=== PATIENT | male | born 1945 | race Caucasian/White ===

== ENCOUNTER 2020-08-30 04:10 | Emergency (ER) | payer MEDICARE, BC ==
[2020-08-30] MEDS ORDERED: Aspirin 81 MG Tab.Chew PO ONE (04:26)
[2020-08-30] MEDS ORDERED: Morphine 2 MG/ML SYRINGE IVPUSH PRN (04:26)
[2020-08-30] MEDS ORDERED: Heparin Sodium 5,000 Units/ML Vial IVPUSH ONE (04:26)
[2020-08-30] MEDS ORDERED: Nitroglycerin 0.4 MG Tab.SL SL PRN (04:26)
[2020-08-30] MEDS ORDERED: Ticagrelor 90 MG Tab PO ONE (04:26)
[2020-08-30] MEDS ORDERED: Ondansetron 4 MG/2 ML SDV IVPUSH ONE (04:26)
[2020-08-30] MEDS ORDERED: Heparin Sodium/D5W 25,000 UNITS/500 ML BAG IV SCH (04:30)
--- NOTE | 2020-08-30 04:37 | EDM.PDOC ---
ED HPI GENERAL MEDICAL PROBLEM - General Chief Complaint: Chest Pain Stated Complaint: CHEST PAINS Time Seen by Provider: 08/30/20 04:26 Source of Information: Reports: Patient, Family, RN Notes Reviewed History Limitations: Reports: No Limitations - History of Present Illness INITIAL COMMENTS - FREE TEXT/NARRATIVE: 75-year-old gentleman presents emergency department day complaint of chest pain, he states the chest pain started earlier this afternoon and has continued. He states he gets very short of breath when he exerts himself has had some diaphoresis no nausea. No history of heart disease he does have a past medical history of hypertension Middle Chest Pain Score (Numeric/FACES): 3 - Related Data Allergies Allergy/AdvReac Type Severity Reaction Status Date / Time lisinopril Allergy Cough Verified 08/30/20 04:23 Home Meds: Home Meds Ascorbic Acid 1,000 mg PO DAILY 08/30/20 [History] Aspirin [Halfprin] 81 mg PO DAILY 08/30/20 [History] Losartan [Cozaar] 100 mg PO DAILY 08/30/20 [History] Metoprolol Succinate 50 mg PO DAILY 08/30/20 [History] Omeprazole Magnesium [Prilosec Otc] 20 mg PO DAILY 08/30/20 [History] Simvastatin [Zocor] 40 mg PO DAILY 08/30/20 [History] Past Medical History Cardiovascular History: Reports: High Cholesterol, Hypertension Gastrointestinal History: Reports: GERD Social & Family History - Tobacco Use Tobacco Use Status *Q: Former Tobacco User Used Tobacco, but Quit: Yes Month/Year Tobacco Last Used: 06/2002 - Caffeine Use Caffeine Use: Reports: Coffee - Alcohol Use Days Per Week of Alcohol Use: 4 Number of Drinks Per Day: 2 Total Drinks Per Week: 8 - Recreational Drug Use Recreational Drug Use: No ED ROS GENERAL - Review of Systems Review Of Systems: See Below Constitutional: Reports: Diaphoresis HEENT: Reports: No Symptoms Respiratory: Reports: Shortness of Breath Cardiovascular: Reports: Chest Pain, Dyspnea on Exertion GI/Abdominal: Reports: No Symptoms : Reports: No Symptoms ED EXAM, GENERAL - Physical Exam Exam: See Below Exam Limited By: No Limitations General Appearance: Alert, WD/WN, No Apparent Distress Respiratory/Chest: No Respiratory Distress, Lungs Clear, Normal Breath Sounds, No Accessory Muscle Use, Chest Non-Tender Cardiovascular: Regular Rate, Rhythm, No Murmur GI/Abdominal: Soft, Non-Tender #1 Interpretation EKG Date: 08/30/20 Rhythm: NSR Banner: Normal P-Wave: Present QRS: Normal ST-T: Elevated QT: Prolonged Comparison: NA - No Prior EKG #2 Interpretation EKG Date: 08/30/20 Rhythm: NSR Banner: Normal P-Wave: Present QRS: Normal ST-T: Normal QT: Prolonged Comparison: Change From Previous EKG Course - Vital Signs Last Recorded V/S: Last Vital Signs Temp 97.9 F 08/30/20 04:26 Pulse 102 H 08/30/20 05:07 Resp 16 08/30/20 05:07 BP 106/59 L 08/30/20 05:07 Pulse Ox 96 08/30/20 05:07 - Orders/Labs/Meds Orders: Active Orders 24 hr Category Date Time Status Cardiac Monitoring [RC] STAT Care 08/30/20 04:26 Active Communication Order [RC] Per Unit Routine Care 08/30/20 04:26 Active Communication Order [RC] Per Unit Routine Care 08/30/20 04:26 Active EKG Documentation Completion [RC] ASDIRECTED Care 08/30/20 04:28 Active Heparin Sodium/D5W [Heparin 25,000 Units in D5W 500 ML] Med 08/30/20 04:30 Active 25,000 units in 500 ml IV TITRATE Morphine Med 08/30/20 04:26 Active 2 mg IVPUSH Q10M PRN Nitroglycerin [Nitrostat] Med 08/30/20 04:26 Active 0.4 mg SL Q5M PRN EKG 12 Lead [EK] Stat Ther 08/30/20 04:26 Ordered Medication Orders Heparin Sodium/Dextrose (Heparin 25,000 Units In D5w 500 Ml) 25,000 units in 500 mls @ 19.051 mls/hr IV TITRATE MELLISA; Protocol Morphine Sulfate (Morphine 2 Mg/Ml Syringe) 2 mg IVPUSH Q10M PRN PRN Reason: Chest Pain Stop: 08/31/20 04:27 Nitroglycerin (Nitroglycerin 0.4 Mg Tab.Sl) 0.4 mg SL Q5M PRN PRN Reason: Chest Pain Stop: 08/31/20 04:27 Last Admin: 08/30/20 04:43 Dose: 0.4 mg Documented by: [email or web address] Labs: Laboratory Tests 08/30/20 08/30/20 Range/Units 04:25 04:25 WBC 10.5 (4.5-11.0) K/uL RBC 3.68 L (4.30-5.90) M/uL Hgb 11.5 L (12.0-15.0) g/dL Hct 35.3 L (40.0-54.0) % MCV 96 (80-98) fL MCH 31 (27-31) pg MCHC 33 (32-36) % Plt Count 204 (150-400) K/uL Neut % (Auto) 77 H (36-66) % Lymph % (Auto) 9 L (24-44) % [place] % (Auto) 9 H (2-6) % Eos % (Auto) 5 H (2-4) % Baso % (Auto) 0 (0-1) % Sodium 144 (140-148) mmol/L Potassium 4.6 (3.6-5.2) mmol/L Chloride 107 (100-108) mmol/L Carbon Dioxide 25 (21-32) mmol/L Anion Gap 12.5 (5.0-14.0) mmol/L BUN 19 H (7-18) mg/dL Creatinine 1.1 (0.8-1.3) mg/dL Est Cr Clr Drug Dosing 56.24 mL/min Estimated GFR (MDRD) > 60 (>60) Glucose 149 H (74-106) mg/dL Calcium 9.0 (8.5-10.1) mg/dL Troponin I 3.031 H* (0.000-0.056) ng/mL Meds: Medications Generic Name Dose Route Start Last Admin Trade Name Freq PRN Reason Stop Dose Admin Heparin Sodium/Dextrose 25,000 units in 500 mls @ 19.051 mls/hr 08/30/20 04:30 Heparin 25,000 Units In D5w 500 Ml IV TITRATE MELLISA Protocol 12 UNITS/KG/HR Morphine Sulfate 2 mg 08/30/20 04:26 Morphine 2 Mg/Ml Syringe IVPUSH 08/31/20 04:27 Q10M PRN Chest Pain Nitroglycerin 0.4 mg 08/30/20 04:26 08/30/20 04:43 Nitroglycerin 0.4 Mg Tab.Sl SL 08/31/20 04:27 0.4 mg Q5M PRN Administration Chest Pain Discontinued Medications Generic Name Dose Route Start Last Admin Trade Name Freq PRN Reason Stop Dose Admin Aspirin 324 mg 08/30/20 04:26 08/30/20 04:40 Aspirin 81 Mg Tab.Chew PO 08/30/20 04:27 324 mg ONETIME ONE Administration Heparin Sodium (Porcine) 4,000 units 08/30/20 04:26 08/30/20 04:48 Heparin Sodium 5,000 Units/Ml Vial IVPUSH 08/30/20 04:27 4,000 units BOLUS ONE Administration Ondansetron HCl 4 mg 08/30/20 04:26 08/30/20 04:48 Ondansetron 4 Mg/2 Ml Sdv IVPUSH 08/30/20 04:27 4 mg ONETIME ONE Administration Ticagrelor 180 mg 08/30/20 04:26 08/30/20 04:40 Ticagrelor 90 Mg Tab PO 08/30/20 04:27 180 mg ONETIME ONE Administration Departure - Departure Time of Disposition: 05:14 Disposition: DC/Tfer to Acute Hospital 02 Reason for Transfer *Q: Other Condition: Fair Clinical Impression: Acute myocardial infarction Qualifiers: Myocardial infarction type: unspecified Involved coronary artery: unspecified coronary artery Qualified Code(s): I21.9 - Acute myocardial infarction, unspecified Referrals: PCP,None [Primary Care Provider] - Forms: ED Department Discharge Critical Care Note - Critical Care Note Total Time (mins): 35 Sepsis Event Note (ED) - Evaluation Sepsis Screening Result: No Definite Risk - Focused Exam Vital Signs: Vital Signs Temp Pulse Resp BP BP Pulse Ox 08/30/20 05:07 102 H 16 106/59 L 96 08/30/20 05:03 100 21 H 102/58 L 95 08/30/20 04:55 95 22 H 97/56 L 94 L 08/30/20 04:47 87 22 H 75/42 L 81 L 08/30/20 04:45 88 24 H 77/39 L 87 L 08/30/20 04:43 114/63 08/30/20 04:40 97 20 107/73 92 L 08/30/20 04:26 97.9 F 96 20 114/64 91 L 08/30/20 04:23 97.8 F 99 25 H 113/65 92 L 08/30/20 04:11 97.8 F 104 H 27 H 113/65 90 L - My Orders Last 24 Hours: My Active Orders 08/30/20 04:26 Cardiac Monitoring [RC] STAT Communication Order [RC] Per Unit Routine Communication Order [RC] Per Unit Routine Morphine 2 mg IVPUSH Q10M PRN Nitroglycerin [Nitrostat] 0.4 mg SL Q5M PRN EKG 12 Lead [EK] Stat 08/30/20 04:28 EKG Documentation Completion [RC] ASDIRECTED 08/30/20 04:30 Heparin Sodium/D5W [Heparin 25,000 Units in D5W 500 ML] 25,000 units in 500 ml IV TITRATE - Assessment/Plan Last 24 Hours: My Active Orders 08/30/20 04:26 Cardiac Monitoring [RC] STAT Communication Order [RC] Per Unit Routine Communication Order [RC] Per Unit Routine Morphine 2 mg IVPUSH Q10M PRN Nitroglycerin [Nitrostat] 0.4 mg SL Q5M PRN EKG 12 Lead [EK] Stat 08/30/20 04:28 EKG Documentation Completion [RC] ASDIRECTED 08/30/20 04:30 Heparin Sodium/D5W [Heparin 25,000 Units in D5W 500 ML] 25,000 units in 500 ml IV TITRATE Plan: Assessment Acuity = acute Site and laterality = ST elevation myocardial infarction Etiology = probable coronary artery disease Manifestations = angina Location of injury = Home Lab values = hemoglobin low 11.5 consistent normochromic anemia BMP unremarkable troponin elevated 3.03 see EKG interpretations above Plan Initially called and discussed the case with Dr. Villavicencio at [phone] [facility], plan was for transport however call back at [phone] recommend hold transport repeat EKG. discussed with Pandora 1 call at [phone] recommend transfer to the emergency department. Thus far he has received aspirin, Brilinta, heparin bolus heparin drip will be in route and 1 nitro which did drop his blood pressure significantly however it responded to fluid challenge, will be transported via EMS ground This note was dictated using Button voice recognition software please call with any questions on syntax or grammar.
[2020-08-30] MEDS ORDERED: Sodium Chloride 0.9% 1,000 ML IV SCH (05:30)
== END 2020-08-30 05:46 ==
LOC: JP.ED 04:10
DX: I21.9 Acute myocardial infarction, unspecified (principal); E78.00 Pure hypercholesterolemia, unspecified; I10 Essential (primary) hypertension; K21.9 Gastro-esophageal reflux disease without esophagitis; Z87.891 Personal history of nicotine dependence; Z88.8 Allergy status to other drugs, medicaments and biological substances; Z79.82 Long term (current) use of aspirin; Z79.899 Other long term (current) drug therapy
CPT/HCPCS: 36415; 80048; 84484; 85025; 93005; 96365; 96375; 96376; 99284; 99285; A9270; J1644; J2405; J7030; 93010